=== PATIENT | female | born 1985 | race Caucasian/White ===

== ENCOUNTER 2019-08-02 00:06 | Emergency (ER) | payer SELFPAY ==
[~2019-08-02] VITALS: Ht 160 cm; Wt 110.2 kg
[2019-08-02 00:23] VITALS: BP 140/63
[2019-08-02 00:24] LABS: BILIRUBIN,URINE NEGATIVE (NEG); CLARITY,URINE CLEAR; COLOR,URINE YELLOW; NITRITE,URINE NEGATIVE (NEG); PH,URINE 5.5; PROTEIN,URINE NEGATIVE (NEG-TRACE)
--- NOTE | 2019-08-02 00:30 | PHYS DOC ---
Past Medical History Past Medical History: Asthma, Diabetes-Type II (YONI NEELY APRN) Past Surgical History: , Other Additional Past Surgical Histo: l. acl (YONI NEELY APRN) Alcohol Use: None Drug Use: None (YONI NEELY APRN) Adult General Chief Complaint Chief Complaint: ABDOMINAL PAIN IN HPI HPI Patient is a 34 year old female with history of diabetes type 2, asthma, 4 para 4 who presents to the ED today concerned she could be , patient is also complaining of mild pelvic pain that began this afternoon, describes the pain as sharp and intermittent. Denies any exacerbating or relieving factors to her pain. Patient denies any nausea vomiting. She states she took a home test 2 days ago which was positive. She states her last menstrual cycle was sporting for 4-5 days around May 22, 2019. Denies any vaginal bleeding. She states is an appointment with an FOOD CRITIC on Sunday next week. She also states she's doesn't know how far along she is and would like to figure out how far along she is. (YONI NEELY APRN) Review of Systems Review of Systems Constitutional: Denies fever or chills [] Eyes: Denies change in visual acuity, redness, or eye pain [] HENT: Denies nasal congestion or sore throat [] Respiratory: Denies cough or shortness of breath [] Cardiovascular: No additional information not addressed in HPI [] GI: Reports abdominal pain in , denies nausea, vomiting, bloody stools or diarrhea [] : Denies dysuria or hematuria [] Musculoskeletal: Denies back pain or joint pain [] Integument: Denies rash or skin lesions [] Neurologic: Denies headache, focal weakness or sensory changes [] All other systems were reviewed and found to be within normal limits, except as documented in this note. (YONI NEELY APRN) Allergies Allergies Allergies Coded Allergies Type Severity Reaction Last Updated Verified No Known Drug Allergies 06/29/15 No (KALLI TOBIAS DO) Physical Exam Physical Exam Constitutional: Well developed, well nourished, no acute distress, non-toxic appearance. [] HENT: Normocephalic, atraumatic, bilateral external ears normal, oropharynx moist, no oral exudates, nose normal. [] Eyes: PERRLA, EOMI, conjunctiva normal, no discharge. [] Neck: Normal range of motion, no tenderness, supple, no stridor. [] Cardiovascular:Heart rate regular rhythm, no murmur [] Lungs & Thorax: Bilateral breath sounds clear to auscultation [] Abdomen: Bowel sounds normal, soft, no tenderness, no masses, no pulsatile masses. [] Pelvic exam-smelly external vagina. Small amount of white discharge in the vaginal vault, no CMT, no adnexal tenderness, Skin: Warm, dry, no erythema, no rash. [] Back: No tenderness, no CVA tenderness. [] Extremities: No tenderness, no cyanosis, no clubbing, ROM intact, no edema. [] Neurologic: Alert and oriented X 3, normal motor function, normal sensory function, no focal deficits noted. [] Psychologic: Affect normal, judgement normal, mood normal. [] (HARRYUNGYONI Del Cid APRN) Physical Exam Constitutional: Well developed, well nourished, no acute distress, non-toxic appearance Neck: Normal range of motion, no tenderness, supple Cardiovascular: Heart rate normal, regular rhythm Lungs & Thorax: Bilateral breath sounds clear to auscultation, no wheezing Abdomen: Soft, no tenderness Skin: Warm, dry, no erythema, no rash Extremities: No tenderness, ROM intact, no edema Neurologic: Alert and oriented X 3, no focal deficits noted Psychologic: Affect normal, judgement normal (KALLI TOBIAS DO) Current Patient Data Vital Signs Vital Signs Date Time Temp Pulse Resp B/P (MAP) Pulse Ox O2 Delivery O2 Flow Rate FiO2 08/02/19 00:23 92 140/63 (88) Room Air 08/02/19 00:12 98.6 19 98 98.6 (KALLI TOBIAS DO) Lab Values Laboratory Tests Test 08/02/19 00:07 08/02/19 00:19 08/02/19 00:45 Urine Collection Type Unknown Urine Color Yellow Urine Clarity Clear Urine pH 5.5 Urine Specific Sullivan >=1.030 Urine Protein Negative mg/dL (NEG-TRACE) Urine Glucose (UA) >=1000 mg/dL (NEG) Urine Ketones (Stick) Negative mg/dL (NEG) Urine Blood Negative (NEG) Urine Nitrite Negative (NEG) Urine Bilirubin Negative (NEG) Urine Urobilinogen Dipstick 1.0 mg/dL (0.2 mg/dL) Urine Leukocyte Esterase Negative (NEG) Urine RBC 0 /HPF (0-2) Urine WBC Occ /HPF (0-4) Urine Squamous Epithelial Cells Mod /LPF Urine Bacteria Many /HPF (0-FEW) Urine Mucus Mod /LPF Urine Opiates Screen Neg (NEG) Urine Methadone Screen Neg (NEG) Urine Barbiturates Neg (NEG) Urine Phencyclidine Screen Neg (NEG) Urine Amphetamine/Methamphetamine Neg (NEG) Urine Benzodiazepines Screen Neg (NEG) Urine Cocaine Screen Neg (NEG) Urine Cannabinoids Screen Pos (NEG) Urine Ethyl Alcohol Neg (NEG) POC Urine HCG, Qualitative Hcg positive (Negative) White Blood Count 11.2 x10^3/uL (4.0-11.0) H Red Blood Count 4.06 x10^6/uL (3.50-5.40) Hemoglobin 11.5 g/dL (12.0-15.5) L Hematocrit 35.1 % (36.0-47.0) L Mean Corpuscular Volume 87 fL (79-100) Mean Corpuscular Hemoglobin 28 pg (25-35) Mean Corpuscular Hemoglobin Concent 33 g/dL (31-37) Red Cell Distribution Width 14.4 % (11.5-14.5) Platelet Count 298 x10^3/uL (140-400) Neutrophils (%) (Auto) 58 % (31-73) Lymphocytes (%) (Auto) 33 % (24-48) Monocytes (%) (Auto) 7 % (0-9) Eosinophils (%) (Auto) 1 % (0-3) Basophils (%) (Auto) 1 % (0-3) Neutrophils # (Auto) 6.5 x10^3/uL (1.8-7.7) Lymphocytes # (Auto) 3.7 x10^3/uL (1.0-4.8) Monocytes # (Auto) 0.8 x10^3/uL (0.0-1.1) Eosinophils # (Auto) 0.1 x10^3/uL (0.0-0.7) Basophils # (Auto) 0.1 x10^3/uL (0.0-0.2) Sodium Level 143 mmol/L (136-145) Potassium Level 3.6 mmol/L (3.5-5.1) Chloride Level 106 mmol/L (98-107) Carbon Dioxide Level 24 mmol/L (21-32) Anion Gap 13 (6-14) Blood Urea Nitrogen 10 mg/dL (7-20) Creatinine 0.9 mg/dL (0.6-1.0) Estimated GFR (Cockcroft-Gault) 72.6 BUN/Creatinine Ratio 11 (6-20) Glucose Level 183 mg/dL (70-99) H Calcium Level 8.6 mg/dL (8.5-10.1) Total Bilirubin 0.2 mg/dL (0.2-1.0) Aspartate Amino Transferase (AST) 14 U/L (15-37) L Alanine Aminotransferase (ALT) 11 U/L (14-59) L Alkaline Phosphatase 53 U/L (46-116) Total Protein 6.8 g/dL (6.4-8.2) Albumin 3.4 g/dL (3.4-5.0) Albumin/Globulin Ratio 1.0 (1.0-1.7) Laboratory Tests 08/02/19 00:45 Laboratory Tests 08/02/19 00:45 Microbiology 08/02/19 Wet Prep - Final, Complete (KALLI TOBIAS DO) EKG EKG [] (YONI NEELY APRN) Radiology/Procedures Radiology/Procedures [] (YONI NEELY APRN) Radiology/Procedures PROCEDURE: OB TRANSVAG Indication:Abdominal pain in . TECHNIQUE: Ultrasound OB COMPARISON: None FINDINGS: Cervix is closed. Nabothian cyst noted. Anteverted uterus measuring 10.7 x 6.0 x 6.5 cm. Endometrial stripe measures 1.5 cm in thickness. Single hypoechoic focus is seen in the uterus, presumed gestation sac with mean sac diameter of 0.49 cm corresponding to estimated gestation age of 5 weeks 2 days. Right ovary measures 1.8 x 2.4 x 2.0 cm and shows evidence of blood flow. Left ovary measures 2.0 x 4.2 x 2.5 cm and shows evidence of blood flow. No free pelvic fluid. Yolk sac or pole visualized. IMPRESSION: Small cystic focus in the uterus, may be a gestation sac corresponding to estimated gestation age of 5 weeks 2 days. No pole or yolk sac seen. Differential diagnoses includes early or ectopic . Follow-up ultrasound recommended. Correlate with beta hCG. Electronically signed by: Hadley Kendall DO (08/02/2019 1:33 AM) [facility] (KALLI TOBIAS DO) Course & Med Decision Making Course & Med Decision Making Pertinent Labs and Imaging studies reviewed. (See chart for details) This is a 34-year-old female patient 4 para 4 currently concerned she could be and complaining of pelvic pain that began today. Patient did a home test 2 days ago which was positive. This will be her fifth . Abdominal pain/pelvic pain began today. She has an appointment with her FOOD CRITIC on Sunday. LMP May 22 2019 Positive urine hCG. [address] Tobias. Labs and OB ultrasound pending (YONI NEELY APRN) Course & Med Decision Making Sign out received from Yoni SUPERVISOR SLATE SPLITTING for patient with abdominal discomfort and . Pelvic exam previously performed by Yoni. Wet mount positive for BV. Labs reviewed. Ultrasound with signs of gestational sac.Patient stable for discharge with outpatient follow-up with PCP/OB-COATING AND BAKING OPERATOR. Discussed findings and plan with patient, who acknowledges understanding and agreement. (KALLI TOBIAS DO) Dragon Disclaimer Dragon Disclaimer This electronic medical record was generated, in whole or in part, using a voice recognition dictation system. (YONI NEELY APRN) Departure Departure Impression: Primary Impression: Abdominal pain in Additional Impression: Bacterial vaginosis Disposition: HOME, SELF-CARE Condition: STABLE Referrals: NO PCP (PCP) EMILIA NAGEL Jr, MD Patient Instructions: ABCs of , Abdominal Pain During , E asy-to-Read, Bacterial Vaginosis, [id number] Scripts Metronidazole (FLAGYL) 500 Mg Tablet 500 MG PO TID for Vaginosis, #21 TAB Prov: KALLI TOBIAS DO 08/02/19 Attending Signature Attending Signature I have personally interviewed and examined the patient. All charts, labs, and imaging studies were reviewed. I agree with the PA/SUPERVISOR SLATE SPLITTING's findings, exam, and plan. (KALLI TOBIAS DO) Problem Qualifiers Primary Impression: Abdominal pain in Trimester: first trimester Qualified Codes: O26.891 - Other specified related conditions, first trimester; R10.9 - Unspecified abdominal pain YONI NEELY APRN Aug 02, 2019 00:30 KALLI TOBIAS DO Aug 02, 2019 01:44
[2019-08-02 00:31] LABS: BARBITURATES NEG (NEG); BENZODIAZEPINES NEG (NEG); CANNABINOIDS POS (NEG); COCAINE NEG (NEG); METHADONE NEG (NEG); OPIATES NEG (NEG); PHENCYCLIDINE NEG (NEG)
[2019-08-02 00:32] LABS: AMPHETAMINE/METHAMPHETAMINE NEG (NEG)
[2019-08-02 00:34] LABS: BACTERIA,URINE MANY /HPF (0-FEW); RBC,URINE 0 /HPF (0-2); SQUAMOUS EPITHELIAL CELL,UR MOD /LPF; WBC,URINE OCC /HPF (0-4)
[2019-08-02 01:03] LABS: BASO # 0.1 x10^3/uL (0.0-0.2); BASO % 1 % (0-3); EOS # 0.1 x10^3/uL (0.0-0.7); EOS % 1 % (0-3); HEMATOCRIT 35.1 % (36.0-47.0); HEMOGLOBIN 11.5 g/dL (12.0-15.5); LYMPH # 3.7 x10^3/uL (1.0-4.8); LYMPH % 33 % (24-48); MEAN CORPUSCULAR HEMOGLOBIN 28 pg (25-35); MEAN CORPUSCULAR HGB CONC 33 g/dL (31-37); MEAN CORPUSCULAR VOLUME 87 fL (79-100); MONO # 0.8 x10^3/uL (0.0-1.1); MONO % 7 % (0-9); NEUT # 6.5 x10^3/uL (1.8-7.7); NEUT % 58 % (31-73); RED BLOOD COUNT 4.06 x10^6/uL (3.50-5.40); RED CELL DISTRIBUTION WIDTH 14.4 % (11.5-14.5); WHITE BLOOD COUNT 11.2 x10^3/uL (4.0-11.0)
[2019-08-02 01:06] LABS: PLATELET COUNT 298 x10^3/uL (140-400)
[2019-08-02 01:15] LABS: CALCIUM 8.6 mg/dL (8.5-10.1); CREATININE 0.9 mg/dL (0.6-1.0); GFR 72.6; POTASSIUM 3.6 mmol/L (3.5-5.1)
[2019-08-02 01:20] LABS: ALBUMIN 3.4 g/dL (3.4-5.0); TOTAL BILIRUBIN 0.2 mg/dL (0.2-1.0); TOTAL PROTEIN 6.8 g/dL (6.4-8.2)
--- NOTE | 2019-08-02 01:36 | RAD ---
Indication:Abdominal pain in . TECHNIQUE: Ultrasound OB COMPARISON: None FINDINGS: Cervix is closed. Nabothian cyst noted. Anteverted uterus measuring 10.7 x 6.0 x 6.5 cm. Endometrial stripe measures 1.5 cm in thickness. Single hypoechoic focus is seen in the uterus, presumed gestation sac with mean sac diameter of 0.49 cm corresponding to estimated gestation age of 5 weeks 2 days. Right ovary measures 1.8 x 2.4 x 2.0 cm and shows evidence of blood flow. Left ovary measures 2.0 x 4.2 x 2.5 cm and shows evidence of blood flow. No free pelvic fluid. Yolk sac or pole visualized. IMPRESSION: Small cystic focus in the uterus, may be a gestation sac corresponding to estimated gestation age of 5 weeks 2 days. No pole or yolk sac seen. Differential diagnoses includes early or ectopic . Follow-up ultrasound recommended. Correlate with beta hCG. Electronically signed by: Hadley Kendall DO (08/02/2019 1:33 AM) [facility]
[2019-08-02] MEDS ORDERED: METR500T PO (01:41)
[2019-08-04 16:09] LABS: GC PROBE Negative (Negative)
== END 2019-08-02 02:27 | disposition home or self-care (01) ==
LOC: ER 00:06
DX: O23.591 Infection of other part of genital tract in pregnancy, first trimester (principal); B96.89 Other specified bacterial agents as the cause of diseases classified elsewhere; R10.9 Unspecified abdominal pain; O24.911 Unspecified diabetes mellitus in pregnancy, first trimester; O99.511 Diseases of the respiratory system complicating pregnancy, first trimester; J45.909 Unspecified asthma, uncomplicated; Z3A.01 Less than 8 weeks gestation of pregnancy
CPT/HCPCS: 36415; 76817; 80053; 80307; 81001; 81025; 84702; 85025; 87086; 87491; 87591; 99285; G0480; Q0111

== ENCOUNTER 2019-08-09 06:48 | Emergency (ER) | payer SELFPAY ==
[~2019-08-09] VITALS: Ht 160 cm; Wt 110.2 kg
[~2019-08-09 06:48] MED LIST: METR500T PO
[2019-08-09 07:11] VITALS: BP 122/70
--- NOTE | 2019-08-09 07:22 | PHYS DOC ---
Past Medical History Past Medical History: Asthma, Bipolar, Diabetes-Type II Past Surgical History: , Other Additional Past Surgical Histo: l. acl Alcohol Use: None Drug Use: None Adult General Chief Complaint Chief Complaint: vaginal bleeding HPI HPI Patient is a 34 year old female with history of bipolar disorder and diabetes type 2 who presents via EMS with complaining of vaginal bleeding. Patient is at 6 weeks of gestation with LMP early June complaining of vaginal bl eeding that started 45 minutes to go and imaging of intercourse was approximately vaginal bleeding without passing blood clots or tissue. Patient denies abdominal pain, chest pain, shortness of breath and dizziness. Patient states the amount of bleeding was a small and she didn't need to use a pad. Review of Systems Review of Systems Constitutional: Denies fever or chills [] Eyes: Denies change in visual acuity, redness, or eye pain [] HENT: Denies nasal congestion or sore throat [] Respiratory: Denies cough or shortness of breath [] Cardiovascular: No additional information not addressed in HPI [] GI: Denies abdominal pain, nausea, vomiting, bloody stools or diarrhea [] : Denies dysuria or hematuria, reports vaginal bleeding Musculoskeletal: Denies back pain or joint pain [] Integument: Denies rash or skin lesions [] Neurologic: Denies headache, focal weakness or sensory changes [] Endocrine: Denies polyuria or polydipsia [] All other systems were reviewed and found to be within normal limits, except as documented in this note. Allergies Allergies Allergies Coded Allergies Type Severity Reaction Last Updated Verified No Known Drug Allergies 06/29/15 No Physical Exam Physical Exam Constitutional: Well nourished, mild distress, non-toxic appearance. [] HENT: Normocephalic, atraumatic. Eyes: PERRLA, EOMI, conjunctiva normal, no discharge. [] Neck: Normal range of motion, no tenderness, supple, no stridor. [] Cardiovascular:Heart rate regular rhythm, no murmur [] Lungs & Thorax: Bilateral breath sounds clear to auscultation [] Abdomen: Bowel sounds normal, soft, no tenderness, no masses, no pulsatile masses, vaginal exam in present of bearing grinder showed normal external genital, small amount of blood in the vagina without lesions. [] Skin: Warm, dry, no erythema, no rash. [] Back: No tenderness, no CVA tenderness. [] Extremities: No tenderness, no cyanosis, no clubbing, ROM intact, no edema. [] Neurologic: Alert and oriented X 3, no focal deficits noted. [] Psychologic: Affect anxious , judgement normal, mood normal. [] Current Patient Data Vital Signs Vital Signs Date Time Temp Pulse Resp B/P (MAP) Pulse Ox O2 Delivery O2 Flow Rate FiO2 08/09/19 07:11 98.6 91 18 122/70 (87) 98 Room Air 98.6 Lab Values Laboratory Tests Test 08/09/19 07:03 08/09/19 07:35 POC Urine HCG, Qualitative Hcg positive (Negative) White Blood Count 7.5 x10^3/uL (4.0-11.0) Red Blood Count 4.23 x10^6/uL (3.50-5.40) Hemoglobin 11.9 g/dL (12.0-15.5) L Hematocrit 36.3 % (36.0-47.0) Mean Corpuscular Volume 86 fL (79-100) Mean Corpuscular Hemoglobin 28 pg (25-35) Mean Corpuscular Hemoglobin Concent 33 g/dL (31-37) Red Cell Distribution Width 14.8 % (11.5-14.5) H Platelet Count 387 x10^3/uL (140-400) Neutrophils (%) (Auto) 66 % (31-73) Lymphocytes (%) (Auto) 25 % (24-48) Monocytes (%) (Auto) 7 % (0-9) Eosinophils (%) (Auto) 2 % (0-3) Basophils (%) (Auto) 1 % (0-3) Neutrophils # (Auto) 5.0 x10^3/uL (1.8-7.7) Lymphocytes # (Auto) 1.9 x10^3/uL (1.0-4.8) Monocytes # (Auto) 0.5 x10^3/uL (0.0-1.1) Eosinophils # (Auto) 0.1 x10^3/uL (0.0-0.7) Basophils # (Auto) 0.0 x10^3/uL (0.0-0.2) Maternal Serum HCG Beta Subunit 41113 mIU/mL (0-5) H Sodium Level 136 mmol/L (136-145) Potassium Level 3.8 mmol/L (3.5-5.1) Chloride Level 102 mmol/L (98-107) Carbon Dioxide Level 26 mmol/L (21-32) Anion Gap 8 (6-14) Blood Urea Nitrogen 14 mg/dL (7-20) Creatinine 0.7 mg/dL (0.6-1.0) Estimated GFR (Cockcroft-Gault) 97.0 BUN/Creatinine Ratio 20 (6-20) Glucose Level 152 mg/dL (70-99) H Calcium Level 8.9 mg/dL (8.5-10.1) Total Bilirubin 0.5 mg/dL (0.2-1.0) Aspartate Amino Transferase (AST) 11 U/L (15-37) L Alanine Aminotransferase (ALT) 12 U/L (14-59) L Alkaline Phosphatase 51 U/L (46-116) Total Protein 7.5 g/dL (6.4-8.2) Albumin 3.4 g/dL (3.4-5.0) Albumin/Globulin Ratio 0.8 (1.0-1.7) L Laboratory Tests 08/09/19 07:35 Laboratory Tests 08/09/19 07:35 EKG EKG [] Radiology/Procedures Radiology/Procedures [][facility] [address], [place] [id number] IMAGING REPORT Signed PATIENT: GARETT SHIRLEY ACCOUNT: [id number] : 1985 LOCATION: ER AGE: 34 SEX: F EXAM STATUS: REG ER ORD. PHYSICIAN: ANGIE CACERES MD REASON: 6 weeks , vaginal bleeding after intercourse PROCEDURE: OB <14 WKS W/TV Obstetrical ultrasound less than 14 weeks COMPARISON: Obstetric ultrasound August 02, 2019. HISTORY: 6 week. vaginal bleeding after sexual intercourse. TECHNIQUE: Transabdominal transvaginal transducers were utilized. FINDINGS: Transabdominal imaging demonstrates anteverted uterus measuring 11.8 x 6.1 x 7.3 cm. Small fundal intrauterine gestational sac with some surrounding decidual reaction which is eccentrically thicker along the anterior wall. No yolk sac or embryo evident. Maternal ovaries not visualized transabdominal. Transvaginal imaging demonstrates a small cervical cyst. Fundal intrauterine gestational sac with a mean gestational sac diameter of 14 mm estimating sonographic gestational age of 6 weeks 2 days and date of delivery April 01, 2020. No yolk sac or embryo evident at this time. No subchorionic hemorrhage. Right ovary measures 2.7 x 2.5 x 1.9 cm. Left ovary measures 2.6 x 3.8 x 1.5 cm. There is intact bilateral ovarian blood flow documented. No adnexal masses documented. No pelvic fluid. IMPRESSION: Fundal intrauterine gestational sac with mean gestational sac diameter 14 mm. There has been progressive appropriate enlargement of the gestational sac since the prior study, however, no yolk sac or pole is evident at this time. This likely represents an early intrauterine with nonvisualization of the pole due to the early gestational age. Continued clinical and sonographic follow-up is advised to exclude the possibility of anembryonic (aka blighted ovum), or pseudogestational sac from sonographically occult ectopic . Electronically signed by: Guille Malagon MD (08/09/2019 9:24 AM) [facility] DICTATED and SIGNED BY: GUILLE MALAGON MD DATE: 08/09/19923 Course & Med Decision Making Course & Med Decision Making Pertinent Labs and Imaging studies reviewed. (See chart for details) Evaluation of patient in ER showed 34-year-old female patient at 6 weeks of gestation with complaining of vaginal bleeding after intercourse. Patient had small amount of vaginal bleeding with unremarkable physical exam and labs. The patient's hCG was increased from 2300 one week ago to 23,000 today. The OB ultrasound showed increasing size of gestational sac without heart rate that could be related to early gestational age. Patient had blood type of A+. Patient was advised to follow-up with pelvic rest and her MANAGER OF NETWORK in 2 days for repeat hCG level and more for couple. Dragon Disclaimer Dragon Disclaimer This electronic medical record was generated, in whole or in part, using a voice recognition dictation system. Departure Departure Impression: Primary Impression: Vaginal bleeding during Additional Impression: Threatened in first trimester Disposition: 01 HOME, SELF-CARE (at 0937) Condition: IMPROVED Referrals: NO PCP (PCP) Patient Instructions: Threatened Miscarriage Additional Instructions: Drink plenty of liquids Follow-up with your MANAGER OF NETWORK in 2 days Return to ER if not getting better Pelvic rest for one week Problem Qualifiers ANGIE CACERES MD Aug 09, 2019 07:22
[2019-08-09 07:50] LABS: BASO % 1 % (0-3); EOS # 0.1 x10^3/uL (0.0-0.7); EOS % 2 % (0-3); HEMATOCRIT 36.3 % (36.0-47.0); HEMOGLOBIN 11.9 g/dL (12.0-15.5); LYMPH # 1.9 x10^3/uL (1.0-4.8); LYMPH % 25 % (24-48); MEAN CORPUSCULAR HEMOGLOBIN 28 pg (25-35); MEAN CORPUSCULAR HGB CONC 33 g/dL (31-37); MEAN CORPUSCULAR VOLUME 86 fL (79-100); MONO # 0.5 x10^3/uL (0.0-1.1); MONO % 7 % (0-9); NEUT % 66 % (31-73); PLATELET COUNT 387 x10^3/uL (140-400); RED BLOOD COUNT 4.23 x10^6/uL (3.50-5.40); RED CELL DISTRIBUTION WIDTH 14.8 % (11.5-14.5); WHITE BLOOD COUNT 7.5 x10^3/uL (4.0-11.0)
[2019-08-09 07:57] LABS: CALCIUM 8.9 mg/dL (8.5-10.1); CREATININE 0.7 mg/dL (0.6-1.0); POTASSIUM 3.8 mmol/L (3.5-5.1)
[2019-08-09 08:03] LABS: ALBUMIN 3.4 g/dL (3.4-5.0); ALBUMIN/GLOBULIN RATIO 0.8 (1.0-1.7); TOTAL BILIRUBIN 0.5 mg/dL (0.2-1.0); TOTAL PROTEIN 7.5 g/dL (6.4-8.2)
--- NOTE | 2019-08-09 09:27 | RAD ---
Obstetrical ultrasound less than 14 weeks COMPARISON: Obstetric ultrasound August 02, 2019. HISTORY: 6 week. vaginal bleeding after sexual intercourse. TECHNIQUE: Transabdominal transvaginal transducers were utilized. FINDINGS: Transabdominal imaging demonstrates anteverted uterus measuring 11.8 x 6.1 x 7.3 cm. Small fundal intrauterine gestational sac with some surrounding decidual reaction which is eccentrically thicker along the anterior wall. No yolk sac or embryo evident. Maternal ovaries not visualized transabdominal. Transvaginal imaging demonstrates a small cervical cyst. Fundal intrauterine gestational sac with a mean gestational sac diameter of 14 mm estimating sonographic gestational age of 6 weeks 2 days and date of delivery April 01, 2020. No yolk sac or embryo evident at this time. No subchorionic hemorrhage. Right ovary measures 2.7 x 2.5 x 1.9 cm. Left ovary measures 2.6 x 3.8 x 1.5 cm. There is intact bilateral ovarian blood flow documented. No adnexal masses documented. No pelvic fluid. IMPRESSION: Fundal intrauterine gestational sac with mean gestational sac diameter 14 mm. There has been progressive appropriate enlargement of the gestational sac since the prior study, however, no yolk sac or pole is evident at this time. This likely represents an early intrauterine with nonvisualization of the pole due to the early gestational age. Continued clinical and sonographic follow-up is advised to exclude the possibility of anembryonic (aka blighted ovum), or pseudogestational sac from sonographically occult ectopic . Electronically signed by: Guille Malagon MD (08/09/2019 9:24 AM) [facility]
== END 2019-08-09 10:10 | disposition home or self-care (01) ==
LOC: ER 06:48
DX: O20.0 Threatened abortion (principal); O99.511 Diseases of the respiratory system complicating pregnancy, first trimester; J45.909 Unspecified asthma, uncomplicated; O24.911 Unspecified diabetes mellitus in pregnancy, first trimester; Z3A.01 Less than 8 weeks gestation of pregnancy
CPT/HCPCS: 36415; 76801; 76817; 80053; 81025; 84702; 85025; 86900; 86901; 99285